=== PATIENT | male | born 1995 | race Caucasian/White ===

== ENCOUNTER 2020-06-09 15:20 | Emergency (ER) | payer BC ==
--- NOTE | 2020-06-09 18:26 | ER ---
Nurse's Notes [facility] Name: Michele Brooke Age: 24 yrs Sex: Male : 1995 Arrival Date: 06/09/2020 Time: 15:25 Bed Waiting Private MD: Diagnosis: Presentation: 06/09 15:37 Chief complaint: Patient states: "I cut my knuckle"(left hand). Superficial laceration aa5 noted, no active bleeding noted. Coronavirus screen: At this time, the client does not indicate any symptoms associated with coronavirus-19. Ebola Screen: Patient negative for fever greater than or equal to 101.5 degrees Fahrenheit, and additional compatible Ebola Virus Disease symptoms. Complicating Factors: There are no complicating factors for this patient. Initial Sepsis Screen: Does the patient meet any 2 criteria? No. Patient's initial sepsis screen is negative. Does the patient have a suspected source of infection? No. Patient's initial sepsis screen is negative. Risk Assessment: Do you want to hurt yourself or someone else? Patient reports no desire to harm self or others. Onset of symptoms was May 2020. 15:37 Method Of Arrival: Ambulatory aa5 15:37 Acuity: JOCELYN 4 aa5 Historical: - Allergies: 15:39 No Known Allergies; aa5 - PMHx: 15:39 None; aa5 - Immunization history:: Adult Immunizations unknown. - Social history:: Smoking status: Reported history of juuling and/or vaping. Vital Signs: 15:37 BP 137 / 75; Pulse 88; Resp 18 S; Temp 97.7(TE); Pulse Ox 98% on R/A; Weight 88.45 kg aa5 (R); Height 5 ft. 8 in. (172.72 cm) (R); 15:37 Body Mass Index 29.65 (88.45 kg, 172.72 cm) aa5 ED Course: 15:25 Patient arrived in ED. mr 15:37 Arm band placed on. aa5 15:39 Triage completed. aa5 18:24 No provider procedures requiring assistance completed. Patient did not have IV access ss during this emergency room visit. Administered Medications: No medications were administered Outcome: 18:24 Eloped from waiting room. ss 18:25 Patient left the ED. ss Signatures: Tiffany Mcguire mr Mcelroy, Scarlet, RN RN aa5 Torie Mayberry, RN RN ss
[2020-06-09 18:34] VITALS: BP 137/75; TEMP 97.7; O2SAT 98
== END 2020-06-09 18:25 | disposition left against medical advice (07) ==
LOC: ER 15:20
DX: S61.412A Laceration without foreign body of left hand, initial encounter (principal); F17.290 Nicotine dependence, other tobacco product, uncomplicated; Z53.21 Procedure and treatment not carried out due to patient leaving prior to being seen by health care provider; W45.8XXA Other foreign body or object entering through skin, initial encounter
CPT/HCPCS: 99281